=== PATIENT | female | born 1945 | race Caucasian/White ===

== ENCOUNTER → 2022-06-10 13:39 | Outpatient (BNVA) | payer MEDICARE, SELFPAY | PROVIDERS: PCP Family Medicine; Visit Provider Psychiatry & Neurology Neurology | DX: R47.9 Unspecified speech disturbances (principal); Z79.82 Long term (current) use of aspirin | CPT/HCPCS: 99202 ==

== ENCOUNTER 2022-06-25 13:09 | Outpatient (REF) | payer MEDICARE, SELFPAY ==
--- NOTE | ~2022-06-25 | CT_ITS ---
EXAMINATION: CT HEAD WITHOUT CONTRAST CLINICAL INFORMATION: Speech disturbances. COMPARISON: None. TECHNIQUE: Contiguous axial imaging was performed from the skullbase to vertex without intravenous administration of contrast. This CT examination was performed using dose optimization techniques as appropriate, variously including the following: *Automated exposure control *Adjustment of mA and/or kV according to patient size (this includes techniques or standardized protocols for targeted exams where dose is matched to indication/reason for exam; i.e. extremities or head) *Use of iterative reconstruction technique DLP: 680 mGy-cm. FINDINGS: There is no evidence of acute intracranial hemorrhage or territorial infarction. No abnormal mass effect or midline shift is seen. Ugarte to white matter differentiation is well preserved. No extra-axial fluid collections are identified. Mild chronic white matter microangiopathic changes noted, particularly in the frontal lobes. There is a small chronic lacunar infarct in the left basal ganglia. Moderate generalized parenchymal volume loss evident with ex vacuo dilatation of the ventricles. The osseous structures and soft tissues are normal. The mastoid air cells are well aerated. There is mild ethmoid sinus mucosal thickening. CT/CT head/brain wo IV con IMPRESSION: No acute intracranial hemorrhage or territorial infarction. Moderate generalized parenchymal volume loss and mild chronic white matter microangiopathy.
== END 2022-06-25 13:10 | disposition home or self-care (01) ==
LOC: HO.CT 13:09
PROVIDERS: PCP Internal Medicine; Visit Provider Psychiatry & Neurology Neurology
DX: R47.9 Unspecified speech disturbances (principal)
CPT/HCPCS: 70450

== ENCOUNTER → 2022-12-11 14:19 | Outpatient (BNVA) | payer MEDICARE, SELFPAY | PROVIDERS: PCP Internal Medicine; Visit Provider Psychiatry & Neurology Neurology | DX: R41.89 Other symptoms and signs involving cognitive functions and awareness (principal); M47.812 Spondylosis without myelopathy or radiculopathy, cervical region | CPT/HCPCS: 99212 ==